=== PATIENT | female | born 1975 | race Caucasian/White ===

== ENCOUNTER 2019-11-23 11:16 | Outpatient (CLI) | payer SELFPAY ==
--- NOTE | 2019-11-23 11:24 | MM_ITS ---
WS: [id number] Bilateral screening digital mammogram, 11/23/2019 Clinical Data: SCREENING Comparison: 10/21/2018, 08/18/2017. Findings: The breast parenchymal pattern shows fibroglandular tissue No spiculated masses or clustered calcific ations are seen. There are no secondary signs of carcinoma. MM/[id number] Impression: 1. Negative bilateral mammogram unchanged. 2. Recommend annual screening mammograms. BIRADS: 1-Negative FOLLOW UP: 1 Year Follow-up The CAD brick paving checker was used.
== END 2019-11-23 11:17 | disposition home or self-care (01) ==
LOC: RADSHAW 11:23
PROVIDERS: PCP Family Medicine; Visit Provider Family Medicine
DX: Z12.31 Encounter for screening mammogram for malignant neoplasm of breast (principal)
CPT/HCPCS: 77067

== ENCOUNTER → 2020-01-11 11:48 | Outpatient (BNVA) | payer SELFPAY | PROVIDERS: PCP Family Medicine; Visit Provider Specialist | DX: G35 Multiple sclerosis (principal) | CPT/HCPCS: 99215 ==

== ENCOUNTER → 2020-02-21 09:10 | Outpatient (BNVA) | payer SELFPAY | PROVIDERS: PCP Family Medicine; Visit Provider Nurse Practitioner Women's Health | DX: Z01.419 Encounter for gynecological examination (general) (routine) without abnormal findings (principal) | CPT/HCPCS: 88175 ==

== ENCOUNTER 2020-12-21 11:18 | Outpatient (CLI) | payer SELFPAY ==
--- NOTE | 2020-12-21 11:24 | MM_ITS ---
WS: [id number] BILATERAL SCREENING DIGITAL MAMMOGRAM WITH CAD HISTORY: SCREENING COMPARISON: 11/23/2019 and 10/21/2018 Bilateral CC and MLO views submitted. Computer aided detection analyzed. Breast composition: There are scattered areas of fibroglandular density. No suspicious masses, microc alcifications or architectural distortion. Benign lymph node upper outer quadrant RIGHT breast is sta ble. MM/[id number] IMPRESSION: BI-RADS: 2-Benign FOLLOW UP: 1 Year Follow-up
== END 2020-12-21 11:19 | disposition home or self-care (01) ==
PROVIDERS: PCP Family Medicine; Visit Provider Family Medicine
DX: Z12.31 Encounter for screening mammogram for malignant neoplasm of breast (principal)
CPT/HCPCS: 77067

== ENCOUNTER → 2021-02-21 08:37 | Outpatient (BNVA) | payer SELFPAY | PROVIDERS: PCP Family Medicine; Visit Provider Nurse Practitioner Women's Health | DX: Z01.419 Encounter for gynecological examination (general) (routine) without abnormal findings (principal); N87.0 Mild cervical dysplasia | CPT/HCPCS: 87624 ==

== ENCOUNTER → 2021-03-12 16:13 | Outpatient (BNVA) | payer SELFPAY | PROVIDERS: PCP Family Medicine; Visit Provider Obstetrics & Gynecology | DX: N87.0 Mild cervical dysplasia (principal) | CPT/HCPCS: 88305 ==

== ENCOUNTER → 2021-04-11 11:35 | Outpatient (BNVA) | payer SELFPAY | PROVIDERS: PCP Family Medicine; Visit Provider Obstetrics & Gynecology | DX: N87.0 Mild cervical dysplasia (principal) | CPT/HCPCS: 88305; 88307 ==

== ENCOUNTER 2021-11-29 10:37 | Outpatient (CLI) | payer SELFPAY ==
--- NOTE | 2021-11-29 11:05 | MM_ITS ---
WS: [id number] BILATERAL SCREENING DIGITAL BREAST TOMOSYNTHESIS MAMMOGRAM WITH CAD HISTORY: SCREENING COMPARISON: 12/21/2020 and 11/23/2019 Bilateral CC and MLO views with tomosynthesis and synthetic mammography submitted. Computer aided det ection analyzed. Breast composition: There are scattered areas of fibroglandular density. No suspicious masses, microc alcifications or architectural distortion. Benign RIGHT axillary tail lymph node. MM/[id number] IMPRESSION: BI-RADS: 2-Benign FOLLOW UP: 1 Year Follow-up
== END 2021-11-29 10:38 | disposition home or self-care (01) ==
LOC: RAD 10:40
PROVIDERS: PCP Family Medicine; Visit Provider Nurse Practitioner Women's Health
DX: Z12.31 Encounter for screening mammogram for malignant neoplasm of breast (principal)
CPT/HCPCS: 77063; 77067

== ENCOUNTER → 2022-04-18 09:15 | Outpatient (BNVA) | payer SELFPAY | PROVIDERS: PCP Family Medicine; Visit Provider Nurse Practitioner Women's Health | DX: Z01.419 Encounter for gynecological examination (general) (routine) without abnormal findings (principal); N87.0 Mild cervical dysplasia | CPT/HCPCS: 87624 ==

== ENCOUNTER 2022-08-06 09:15 | Observation (INO) | payer SELFPAY ==
[2022-08-04 10:32] VITALS: BMI 30.2
[2022-08-04 11:04] LABS: Basophils # 0.1 10^3/uL (0.0-0.1); Basophils % 0.4 %; Eosinophils # 0.1 10^3/uL (0.0-0.8); Eosinophils % 0.5 %; Hematocrit 41.4 % (37.0-47.0); Hemoglobin 13.6 g/dL (11.5-15.3); Lymphocytes # 2.8 10^3/uL (0.8-4.8); Lymphocytes % 24.8 %; Mean Corpuscular HGB Conc 32.9 g/dL (30.0-36.0); Mean Corpuscular Volume 91.4 fl (81-99); Mean Platelet Volume 10.5 fL (7.4-10.4); Monocytes # 0.6 10^3/uL (0.2-0.9); Monocytes % 5.5 %; Neutrophils # 7.77 10^3/uL (1.8-7.7); Neutrophils % 68.4 %; Nucleated Red Blood Cells % 0 %; Platelet Count 282 10^3/cmm (130-400); Red Blood Count 4.53 10^6/uL (4.1-5.3); Red Cell Distribution Width 12.2 % (12.1-15.1); White Blood Count 11.4 10^3/uL (4.0-10.0)
[2022-08-04 11:16] LABS: Urine Appearance Clear (CLEAR); Urine Color Yellow (Yellow); pH Urine 6.5 (5-7)
[2022-08-04 11:17] LABS: Add Urine Microscopic? YES; Bilirubin Urine Neg (Negative); Blood Urine Trace (Negative); Glucose Urine UA Norm (Normal); Ketones Urine 1+ (Negative); Leukocyte Esterase Urine Negative (Negative); Nitrate Urine Negative (Negative); Protein Urine Neg (Negative); Urobilinogen Urine Norm (Negative)
[2022-08-04 11:18] LABS: Add Urine Culture? No; Bacteria Urine TRACE /hpf; Squamous Epithelial Cell Urine RARE /hpf (0-5); WBC Urine 0-4 /hpf (0-5)
[2022-08-04 11:22] LABS: Alanine Aminotransferase 9 U/L (0-33); Albumin Level 4.7 g/dL (3.5-5.2); Alkaline Phosphatase 62 U/L (35-105); Aspartate Amino Transferase 16 U/L (0-32); Blood Urea Nitrogen 10 mg/dL (6-20); Calcium 9.2 mg/dL (8.5-10.5); Carbon Dioxide 23 mmol/L (22-29); Chloride 104 mmol/L (98-107); Creatinine Clr Calc Pharmacy 96.1265; Globulin 2.7 g/dL (1.3-4.6); Glomerular Filtration Rate 90.5 mL/min (90-130); Glucose 88 mg/dL (65-115); Osmolality Calculated 290 mOsm/kg (285-295); Sodium 141 mmol/L (136-145); Total Bilirubin 0.4 mg/dL (0.15-1.2); Total Protein 7.4 g/dL (6.6-8.7)
--- NOTE | 2022-08-04 11:57 | P.ANESASSM_ITS ---
Pre-Anesthetic Assessment Height/Weight: Height 1.57 m Weight 74.843 kg Operation Date: 08/06/22 08:15 Proposed Procedures p Total vaginal hysterectomy 95579,R87.619,N93.9(Not Applicable) - Hernesto Fowler MD Familial anesthetic complications: PONV Was Beta Stacey taken within 24 hours: N/A Was Clonidine taken within 24 hours: N/A Social No alcohol and No tobacco Exam alert, oriented x 3, clear to auscultation bilaterally and regular rate & rhythm Airway Submandibular: within normal limits Cervical ROM: within normal limits Mallampati: Class II Dentition: full CV/HEM Hypertension Neuropsych MS Anesthetic Plan ASA status: 2 Anesthesia: General (TIVA) Medications/Allergies Home Medications Medication Instructions Recorded Confirmed Last Taken Type lisinopril 10 1 tab PO DAILY 01/11/20 08/04/22 Unknown History mg-hydrochlorothiazide 12.5 mg tablet cholecalciferol (vitamin D3) 50 50 mcg PO DAILY 02/21/20 08/04/22 Unknown History mcg (2,000 unit) tablet (Vitamin D3) Allergies Allergy/AdvReac Type Severity Reaction Status Date / Time No Known Allergies Allergy Verified 08/04/22 08:55 [facility] Anesthesia Medical History 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 States she cannot afford medication and all the doctors she sees want medication so she does not really follow with any doctor and manages her own symptoms. No pertinent past medical history Denies diabetes, asthma, seizures, DVT/PE PCP: Dr. Toro Surgical History History of dilation and curettage (~1998) For miscarriage History of LEEP (loop electrosurgical excision procedure) of cervix complicating X 2 04/11/2021 for persistent abnormal Pap smear for over 5 years 2011 for MK-3 History of tubal ligation (~2004) Performed via umbilicus Family History Grandmother Heart disease Maternal Stroke Maternal Hypertension maternal Mother Diabetes Hypertension Breast cancer diagnosed at age 62 Hypercholesteremia Father Diabetes Hypertension Brother Diabetes Hypertension Hypercholesteremia Grandfather Hypertension maternal Denies family history of Colon cancer Ovarian cancer Bleeding disorder Uterine cancer Thyroid disease Data Anesthesia 08/04/22 10:48 08/04/22 10:48 Short CBC 08/04/22 Range/Units 10:48 WBC 11.4 H (4.0-10.0) 10^3/uL Hgb 13.6 (11.5-15.3) g/dL Hct 41.4 (37.0-47.0) % MCV 91.4 (81-99) fl Plt Count 282 (130-400) 10^3/cmm Neut % (Auto) 68.4 % Neut # (Auto) 7.77 H (1.8-7.7) 10^3/uL BMP 08/04/22 10:48 Sodium 141 Potassium 4.0 Chloride 104 Carbon Dioxide 23 BUN 10 Creatinine 0.7 Glucose 88 Calcium 9.2 Liver Function 08/04/22 Range/Units 10:48 Total Bilirubin 0.4 (0.15-1.2) mg/dL AST 16 (0-32) U/L ALT 9 (0-33) U/L Alkaline Phosphatase 62 (35-105) U/L Albumin 4.7 (3.5-5.2) g/dL Urine 08/04/22 Range/Units 10:45 Urine Color Yellow (Yellow) Urine Appearance Clear (CLEAR) Urine pH 6.5 (5-7) Ur Specific [place] 1.010 (1.005-1.030) Urine Protein Neg (Negative) Urine Glucose (UA) Norm (Normal) Urine Ketones 1+ H (Negative) Urine Nitrate Negative (Negative) Urine Bilirubin Neg (Negative) Ur Leukocyte Esterase Negative (Negative) Urine RBC None (0-2) /hpf Urine WBC 0-4 H (0-5) /hpf Blood Bank 08/04/22 10:48 Blood Type O Positive Rho(D) Type Positive Antibody Screen Negative Cardiac Studies: No Data to Display
[2022-08-05 20:35] LABS: OR HCG Qualitative Urine Negative (Negative)
[2022-08-06] VITALS (20 sets, daily range): BP systolic 91–117; BP diastolic 53–77; PULSE 50–92; RESP 16–20; TEMP 36.1–37.3; O2SAT 95–100; BMI 30.2
[2022-08-06] MEDS: sodium chloride 0.9% 500 ML IV (06:19)
[2022-08-06] MEDS: scopolamine 1.5 Patch 1 PATCH TRANSDERMA (06:20)
--- NOTE | 2022-08-06 06:51 | W.PM.OPSUD ---
Surgery/Procedure H&P Update DATE OF PROCEDURE: August 06, 2022 DATE H&P PERFORMED: 08/04/22 H&P UPDATE INFORMATION: I have reviewed H&P completed within last 30 days, I have examined patient prior to procedure and No changes to prior documentation PREOP DIAGNOSIS: Abnormal uterine bleeding, abnormal cervix PLANNED PROCEDURE: Operation Date: 08/06/22 07:00 Proposed Procedures p Total vaginal hysterectomy 94695,R87.619,N93.9(Not Applicable) - Hernesto Fowler MD
[2022-08-06] MEDS: ceFOXitin 2,000 MG in sodium chloride 0.9% (plus) 50 ML 100 MG IV (07:04)
[2022-08-06] MEDS: lidocaine-epi 2% 20 mL INJ INJECTION (07:42)
--- NOTE | 2022-08-06 08:25 | PM.OP ---
Operative Report Date of procedure: August 06, 2022 Pre-op diagnosis: Preop Diagnosis Abnormal uterine bleeding, abnormal cervix Post-op diagnosis: Same as above Post-op findings: Normal so you Procedure done: Total vaginal hysterectomy Specimens removed/disposition: Uterus Surgeon: Hernesto Fowler MD Estimated blood loss (mL): 50 IV fluids (mL): 700 Urine output (mL): 200 Procedure: After informed consent and risks, benefits, indications and alternatives reviewed with the patient was taken to the operating room. The patient was placed in dorsal lithotomy position prepped, and draped in the usual sterile fashion. The pre-procedure timeout verifying the correct patient, procedure, site and side, could not requirements was performed and acknowledge by the OR team. A Harrison catheter was placed. A Bookwalter vaginal retractor was placed into the vagina in usual manner visualize the cervix. The patient was given methylene blue IV. The cervix was grasped with a single tooth tenaculum and circumferentially infiltrated with 2% lidocaine with epinephrine. Then cervix was circumferentially incised with bovie and the bladder was dissected off the pubovesical cervical fascia anteriorly with a sponge stick and Metzenbaum scissors. The anterior peritoneal reflection was identified and the anterior cul-de-sac was entered sharply with Metzenbaum scissors. The same procedure was performed posteriorly and a posterior colpotomy was made through the posterior cul-de-sac space without difficulty and the posterior blade of the Bookwalter vaginal retractor was advanced posteriorly into the cul-de-sac. At this time, the left and right uterosacral ligaments were isolated and ligated with 0 Vicryl. The Voyant device was placed over the uterosacral ligaments on either side and was then used in a serial fashion up through the cardinal ligaments bilaterally cross-clamped, cut, and sealed with the Voyant device. Finally, the uterine arteries were cross-clamped, cut, sealed and ligated with the Voyant device. Hemostasis was assured. The broad ligaments were then serially clamped, sealed and cut with the Voyant device on both sides. Excellent hemostasis was visualized. Both cornua were clamped, sealed and cut with the Voyant device. Then the pedicles were then suture ligated with excellent hemostasis. The uterus was excised and submitted for pathologic evaluation. No other abnormalities were noted in the pelvic cavity. Good hemostasis was assure on both sides. The peritoneum was then closed in a pursestring fashion with 0 Vicryl suture. The vaginal cuff angles were closed with pelxwd-vg-ipure #0 Vicryl suture on both sides and transfixed with the ipsilateral cardinal and uterosacral ligaments. The remainder of the vaginal cuff was closed with #0 Vicryl in a running locked fashion. At this time, instruments were removed from the vagina at hemostasis assured. Harrison catheter was noted yielding clear jakob urine. The patient was taken out of dorsal lithotomy position and awakened from the general anesthesia. The patient tolerated the procedure well and was taken to the PACU recovery room in a stable condition. Sponge, lap, needle and instruments counts were correct x3.
--- NOTE | 2022-08-06 09:33 | P.ANESUD_ITS ---
Pre-Anesthetic Update Pre-Anesthetic Assessment: Date of Surgery/Procedure: 08/06/22 Preop Mandi gnosis: Abnormal uterine bleeding, abnormal cervix Proposed Procedure: Operation Date: 08/06/22 07:00 Proposed Procedures p Total vaginal hysterectomy 28885,R87.619,N93.9(Not Applicable) - Hernesto Fowler MD Any changes to Pre-Anesthetic Assessment?: No Last Intake: Intake Last Liquid Date 08/05/22 Last Liquid Time 19:30 Last Solid Date 08/05/22 Last Solid Time 17:30 Labs Last 48hrs: Short CBC 08/04/22 Range/Units 10:48 WBC 11.4 H (4.0-10.0) 10^3/ uL Hgb 13.6 (11.5-15.3) g/dL Hct 41.4 (37.0-47.0) % MCV 91.4 (81-99) fl Plt Count 282 (130-400) 10^3/c mm Neut % (Auto) 68.4 % Neut # (Auto) 7.77 H (1.8-7.7) 10^3/u L BMP 08/04/22 10:48 Sodium 141 Potassium 4.0 Chloride 104 Carbon Dioxide 23 BUN 10 Creatinine 0.7 Glucose 88 Calcium 9.2 Liver Function 08/04/22 Range/Units 10:48 Total Bilirubin 0.4 (0.15-1.2) mg/dL AST 16 (0-32) U/L ALT 9 (0-33) U/L Alkaline Phosphata se 62 (35-105) U/L Albumin 4.7 (3.5-5.2) g/dL Urine 08/04/22 Range/Units 10:45 Urine Color Yellow (Yellow) Urine Appearance Clear (CLEAR) Urine pH 6.5 (5-7) Ur Specific [place]it y 1.010 (1.005-1.030) Urine Protein Neg (Negative) Urine Glucose (UA) Norm (Normal) Urine Ketones 1+ H (Negative) Urine Nitrate Negative (Negative) Urine Bilirubin Neg (Negative) Ur Leukocyte Valerie ase Negative (Negative) Urine RBC None (0-2) /hpf Urine WBC 0-4 H (0-5) /hpf Blood Bank 08/04/22 10:48 Blood Type O Positive Rho(D) Type Positive Antibody Screen Negative Vitals: Temperature 97.4 F L 08/06/22 09:12 Temperature Source Temporal Artery S can 08/06/22 09:12 Pulse Rate 74 08/06/22 09:12 Respiratory Rate 16 08/06/22 09:12 Blood Pressure 101/65 08/06/22 09:12 Blood Pressure Niru n 77 08/06/22 09:12 Pulse Oximetry 98 08/06/22 09:12 Oxygen Delivery Me thod 08/06/22 09:12 Oxygen Flow Rate 6 08/06/22 08:53 Exam: Pre-Anes Outpt Exam: alert, oriented x 3, clear to auscultation bilaterally and regular rate & rhythm Cardiac Studies: No Data to Display
[2022-08-06] MEDS: sodium chloride 0.9% 1,000 ML 30 ML IV (09:47)
[2022-08-06] MEDS: ketorolac 30 mg/mL INJ IVP ×2 (11:10→17:00)
--- NOTE | 2022-08-06 16:49 | ANE.PACU2 ---
Inpatient post-anesthesia follow up: Airway intact: Yes Vital signs: Temperature 97.9 F Pulse Rate 92 Respiratory Rate 18 Blood Pressure 96/64 Pulse Oximetry 98 Oxygen Delivery Me thod Room Air Oxygen Flow Rate 6 Fraction of Inspir ed Oxygen Hydration adequate: Yes Nausea and vomiting: No Pain level: 3 Mental status: Baseline
[2022-08-06] MEDS: docusate sodium 100 mg Capsule PO (17:00)
[2022-08-06] MEDS: HYDROcodone-acetaminophen 5-325 mg Tablet PO (21:15)
[2022-08-06] MEDS: simethicone 80 mg Chew PO (21:15)
[2022-08-07 05:03] VITALS: BP 92/87; PULSE 59; RESP 18; TEMP 36.8; O2SAT 94
[2022-08-07 05:18] LABS: Hematocrit 38.2 % (37.0-47.0); Hemoglobin 12.5 g/dL (11.5-15.3); Mean Corpuscular HGB Conc 32.7 g/dL (30.0-36.0); Mean Corpuscular Volume 91.6 fl (81-99); Mean Platelet Volume 10.6 fL (7.4-10.4); Platelet Count 281 10^3/cmm (130-400); Red Blood Count 4.17 10^6/uL (4.1-5.3); Red Cell Distribution Width 12.3 % (12.1-15.1)
[2022-08-07 05:26] LABS: White Blood Count 31.9 10^3/uL (4.0-10.0)
[2022-08-07 05:54] VITALS: BP 111/68; PULSE 75; RESP 18; TEMP 36.6; TEMP 36.7; O2SAT 96
--- NOTE | 2022-08-07 08:54 | PM.OBGYDC ---
Discharge Providers DOMESTIC CLEANER Date of Admission: 08/06/22 09:15 Date of Discharge: 08/07/22 Attending Provider at Admission: Hernesto Fowler MD Attending Provider at Discharge: Hernesto Fowler MD Primary DOMESTIC CLEANER: Hernesto Fowler MD Primary Care Provider: Lori Toro MD Reason for Visit Reason for Visit: R87.619, N93.9 Brief History: Mrs. Pennington is a 47-year-old female with a history of persistent chronic abnormal Pap smear and abnormal uterine bleeding. Hospital Course Hospital Course Mrs. Pennington is a 47-year-old female with a history of persistent chronic abnormal Pap smear and abnormal uterine bleeding. She was admitted for planned total vaginal hysterectomy which was performed without complications. Overnight observation was unremarkable. She is tolerating diet well. Ambulating without difficulty. Refers no pain and she has not requested any pain medication. She is afebrile and hemodynamically stable postoperative day 1. Patient counseled regarding elevated white count may be associated to her MS history. She was counseled regarding pelvic rest for 6 weeks (no sex, no tampons, no vaginal douches). Return to the emergency room if any fever, increased bleeding or pain. She was also advised regarding no heavy lifting greater than 10 pounds. She was advised to follow-up in the clinic tomorrow to check blood count. Physical Exam Narrative: GA: Alert and oriented ?3. HEENT: WNL. Heart: Regular rate and rhythm. Lungs: Clear to auscultation bilaterally. Abdomen: Bowel sounds present, nontender, minimal tenderness. DINING SERVICE SUPERVISOR: No bleeding. Extremities: No edema, no cyanosis, no calves pain. Urinary Catheter Management: Harrison: Cath Placed During This Visit: yes, but has since been removed by the nurse Reason for Continuing Indwelling Catheter: Required Immobilization for Trauma or Surgery or Anesthesia Urinary Catheter Date of Insertion: 08/06/22 Urinary Catheter Time of Insertion: 07:34 Date Urinary Catheter Removed: 08/06/22 Time Urinary Catheter Discontinued: 16:30 History History History 3 Term 2 0 Miscarriages/Ectopic 1 Living Children 2 Discharge Data Studies Completed and Pending Pending at discharge Category Date Time Status Pathology: Surgical [PTH] Routine Pth 08/06/22 08:08 Received Laboratory Results WBC 31.9 10^3/uL (4.0-10.0) H* 08/07/22 05:10 RBC 4.17 10^6/uL (4.1-5.3) 08/07/22 05:10 Hgb 12.5 g/dL (11.5-15.3) 08/07/22 05:10 Hct 38.2 % (37.0-47.0) 08/07/22 05:10 MCV 91.6 fl (81-99) 08/07/22 05:10 MCH 30.0 pg (28.0-34.0) 08/07/22 05:10 MCHC 32.7 g/dL (30.0-36.0) 08/07/22 05:10 RDW 12.3 % (12.1-15.1) 08/07/22 05:10 Plt Count 281 10^3/cmm (130-400) 08/07/22 05:10 MPV 10.6 fL (7.4-10.4) H 08/07/22 05:10 Neut % (Auto) 68.4 % 08/04/22 10:48 Lymph % (Auto) 24.8 % 08/04/22 10:48 [place] % (Auto) 5.5 % 08/04/22 10:48 Eos % (Auto) 0.5 % 08/04/22 10:48 Baso % (Auto) 0.4 % 08/04/22 10:48 Neut # (Auto) 7.77 10^3/uL (1.8-7.7) H 08/04/22 10:48 Lymph # (Auto) 2.8 10^3/uL (0.8-4.8) 08/04/22 10:48 [place] # (Auto) 0.6 10^3/uL (0.2-0.9) 08/04/22 10:48 Eos # (Auto) 0.1 10^3/uL (0.0-0.8) 08/04/22 10:48 Baso # (Auto) 0.1 10^3/uL (0.0-0.1) 08/04/22 10:48 Nucleated RBC % (auto) 0 % 08/04/22 10:48 Nucleated RBCs # 0.0 /100WBC 08/04/22 10:48 Sodium 141 mmol/L (136-145) 08/04/22 10:48 Potassium 4.0 mmol/L (3.5-5.1) 08/04/22 10:48 Chloride 104 mmol/L (98-107) 08/04/22 10:48 Carbon Dioxide 23 mmol/L (22-29) 08/04/22 10:48 Anion Gap 18.0 (5-19) 08/04/22 10:48 BUN 10 mg/dL (6-20) 08/04/22 10:48 Creatinine 0.7 mg/dL (0.5-0.9) 08/04/22 10:48 GFR Calculation 90.5 mL/min (90-130) 08/04/22 10:48 Glucose 88 mg/dL (65-115) 08/04/22 10:48 Calculated Osmolality 290 mOsm/kg (285-295) 08/04/22 10:48 Calcium 9.2 mg/dL (8.5-10.5) 08/04/22 10:48 Total Bilirubin 0.4 mg/dL (0.15-1.2) 08/04/22 10:48 AST 16 U/L (0-32) 08/04/22 10:48 ALT 9 U/L (0-33) 08/04/22 10:48 Alkaline Phosphatase 62 U/L (35-105) 08/04/22 10:48 Total Protein 7.4 g/dL (6.6-8.7) 08/04/22 10:48 Albumin 4.7 g/dL (3.5-5.2) 08/04/22 10:48 Globulin 2.7 g/dL (1.3-4.6) 08/04/22 10:48 Urine Color Yellow (Yellow) 08/04/22 10:45 Urine Appearance Clear (CLEAR) 08/04/22 10:45 Urine pH 6.5 (5-7) 08/04/22 10:45 Ur Specific [place] 1.010 (1.005-1.030) 08/04/22 10:45 Urine Protein Neg (Negative) 08/04/22 10:45 Urine Glucose (UA) Norm (Normal) 08/04/22 10:45 Urine Ketones 1+ (Negative) H 08/04/22 10:45 Urine Blood Trace (Negative) H 08/04/22 10:45 Urine Nitrate Negative (Negative) 08/04/22 10:45 Urine Bilirubin Neg (Negative) 08/04/22 10:45 Urine Urobilinogen Norm mg/dL (Negative) 08/04/22 10:45 Ur Leukocyte Esterase Negative (Negative) 08/04/22 10:45 Urine RBC None /hpf (0-2) 08/04/22 10:45 Urine WBC 0-4 /hpf (0-5) H 08/04/22 10:45 Ur Squamous Epith Cells Rare /hpf (0-5) 08/04/22 10:45 Amorphous Sediment Not Reportable 08/04/22 10:45 Urine Bacteria Trace /hpf (NONE) 08/04/22 10:45 Urine HCG, Qual Negative (Negative) 08/04/22 10:45 Blood Type O Positive 08/04/22 10:48 Rho(D) Type Positive 08/04/22 10:48 Antibody Screen Negative 08/04/22 10:48 Vitals Last Vital Signs Temp 98.0 F 08/07/22 05:54 Pulse 75 08/07/22 05:54 Resp 18 08/07/22 05:54 BP 111/68 08/07/22 05:54 Pulse Ox 96 08/07/22 05:54 O2 Del Method 08/07/22 05:54 O2 Flow Rate 6 08/06/22 08:53 Discharge Plan Discharge Patient Disposition: Home Condition: Stable Prescriptions: New hydrocodone-acetaminophen 5-325 mg tablet 1 tab PO Q4H PRN (Reason: pain) Qty: 10 0RF acetaminophen 325 mg capsule 325 mg PO Q4H PRN (Reason: fever or pain) Qty: 60 0RF ibuprofen 800 mg tablet 800 mg PO TID PRN (Reason: pain) Qty: 60 0RF Continued cholecalciferol (vitamin D3) [Vitamin D3] 50 mcg (2,000 unit) tablet 50 mcg PO DAILY lisinopril-hydrochlorothiazide 10-12.5 mg tablet 1 tab PO DAILY Discharge Orders: Discharge Order (Routine); Ordered 08/07/22 Ordered By: Hernesto Fowler Referrals: Hernesto Fowler MD [Physician] - 08/20/22 11:00 am (2 week post-op: 08/20/22 @11:00 6 week post-op: 09/19/22 @9:30) Discharge Diet: Usual diet Discharge Activity: Limit activity as instructed Patient Instructions: Vaginal Hysterectomy (DC), OB Discharge Report, OB Food/Drug Interaction Guide, Opioid Safety Activity Restrictions/Additional Instructions: 1. Please call [facility] on next working day to make your post-operative appointment in 2 weeks. 2. Please stay home until you come back to the clinic on first post-operative check up. 3. Please follow instructions on your medications CAREFULLY. 4. If you have abdominal incision, do not cover it unless dressing is necessary because of drainage. OK to shower, but avoid bath. Leave steri-strips until they fall off. If they are still on one week after surgery, you may remove them. 5. If you had vaginal surgery or vaginal repair, Dr. Fowler may instruct you to take SITZ bath. 6. Yellow, blood tinged odorous vaginal discharge is usually normal after hysterectomy or vaginal surgeries. 7. No sexual intercourse, tampons, or douches until you are completely released from the post-operative care. 8. Avoid constipation by eating right and maybe using some Metamucil or Milk of Magnesia. 9. All prescription refills are given during the working hours. Please do no wait till it runs out. Call the clinic at [phone] before your medication runs out. The clinic will get in touch with your doctor to prescribe medications if necessary. 10. Please remain within 40 mile radius from our hospital because emergencies do happen now and then during the post-operative period. 11. If you have stairs at home, take one step at a time slowly and minimize the number of trips. It helps to stay in one floor for the next few days. No lifting except what you can lift by one hand until you are released from the post-operative care. 12. Driving is discouraged until you are well healed. It may be 3-4 weeks before you feel strong enough to drive. You should be able to turn and look through the rear window without pain and you should be able to push the brake pedal very hard without pain before you drive. No fast rules, but SAFETY should be your primary concern. DO NOT drive if you are on sedating medications such as narcotics. 13. Call the clinic (during working hours) to make urgent appointment or go to the Emergency room, if any of the following occurs: i. Vaginal bleeding becomes heavy, more than a period. ii. Incision becomes red and sore, or drains pus. iii. Your temperature is over 100.4 or you have chill. iv. IV site becomes red and swollen (a little ``knot?? is usually OK) v. Persistent nausea and vomiting vi. Persistent constipation or diarrhea vii. Rash or allergic reaction to medications. Discharge Attestations DOMESTIC CLEANER Time Spent in Discharge Care*: greater than 30 min Coding Level of Care Code Acute Code for Chg Fwd
[2022-08-07] MEDS: ibuprofen 800 mg tablet PO (09:20)
[2022-08-07] MEDS: docusate sodium 100 mg Capsule PO (09:20)
[2022-08-07 09:40] VITALS: BP 109/68; PULSE 65; RESP 18; TEMP 36.6; O2SAT 100
[2022-08-07 09:41] VITALS: BP 109/68; PULSE 65; RESP 18; TEMP 36.6; O2SAT 100
== END 2022-08-07 09:32 | disposition home or self-care (01) ==
LOC: OBGYN 09:16
PROVIDERS: Admitting Provider Obstetrics & Gynecology; PCP Family Medicine; Visit Provider Obstetrics & Gynecology
PROC: (CPT 58260; principal; 2022-08-06 07:00)
DX: N93.9 Abnormal uterine and vaginal bleeding, unspecified (principal); I10 Essential (primary) hypertension
CPT/HCPCS: 58260; 36415; 80053; 81001; 81025; 84703; 85025; 85027; 86850; 86900; 88307; G0378; J0131; J0694; J1100; J1885; J2250; J2405; J2704; J3010; J3490; J7030; J7040; Q9968

== ENCOUNTER → 2022-08-08 10:20 | Outpatient (BNVA) | payer SELFPAY | PROVIDERS: PCP Family Medicine; Visit Provider Obstetrics & Gynecology | DX: Z87.42 Personal history of other diseases of the female genital tract (principal) | CPT/HCPCS: 85025 ==

== ENCOUNTER 2022-12-01 08:22 | Outpatient (CLI) | payer SELFPAY ==
--- NOTE | 2022-12-01 08:35 | MM_ITS ---
WS: [id number] BILATERAL SCREENING DIGITAL TOMOSYNTHESIS MAMMOGRAM WITH CAD HISTORY: SCREENING COMPARISON: 11/29/2021, 12/21/2020 Bilateral CC and MLO views with tomosynthesis and synthetic mammography submitted. Computer aided det ection analyzed. Breast composition: There are scattered areas of fibroglandular density. No suspicious masses, microc alcifications or architectural distortion. MM/[id number] IMPRESSION: BI-RADS: 1-Negative FOLLOW UP: 1 Year Follow-up
== END 2022-12-01 08:23 | disposition home or self-care (01) ==
PROVIDERS: PCP Family Medicine; Visit Provider Family Medicine
DX: Z12.31 Encounter for screening mammogram for malignant neoplasm of breast (principal)
CPT/HCPCS: 77063; 77067

== ENCOUNTER → 2023-06-19 10:52 | Outpatient (BNVA) | payer OTHER, SELFPAY | PROVIDERS: PCP Family Medicine; Visit Provider Family Medicine | DX: G35 Multiple sclerosis (principal); F41.9 Anxiety disorder, unspecified; I10 Essential (primary) hypertension; R53.83 Other fatigue | CPT/HCPCS: 80053; 80061; 82306; 82607; 82746; 83550; 84439; 84443; 85025 ==

== ENCOUNTER → 2023-08-05 13:50 | Outpatient (BNVA) | payer OTHER, SELFPAY | PROVIDERS: PCP Family Medicine; Visit Provider Nurse Practitioner Women's Health | DX: D06.9 Carcinoma in situ of cervix, unspecified (principal); Z01.419 Encounter for gynecological examination (general) (routine) without abnormal findings; F41.9 Anxiety disorder, unspecified; G35 Multiple sclerosis | CPT/HCPCS: 87624 ==

== ENCOUNTER 2023-12-03 09:30 | Outpatient (CLI) | payer OTHER, SELFPAY ==
--- NOTE | 2023-12-03 09:15 | MM_ITS ---
WS: [id number] BILATERAL SCREENING DIGITAL TOMOSYNTHESIS MAMMOGRAM WITH CAD HISTORY: SCREENING COMPARISON: 12/01/2022, 11/29/2021 Bilateral CC and MLO views with tomosynthesis and synthetic mammography submitted. Computer aided det ection analyzed. Breast composition: There are scattered areas of fibroglandular density. No suspicious masses, microc alcifications or architectural distortion. RIGHT axillary tail lymph node. MM/[id number] IMPRESSION: BI-RADS: 2-Benign FOLLOW UP: 1 Year Follow-up
== END 2023-12-03 09:31 | disposition home or self-care (01) ==
PROVIDERS: PCP Family Medicine; Visit Provider Family Medicine
DX: Z12.31 Encounter for screening mammogram for malignant neoplasm of breast (principal); R92.323 Mammographic fibroglandular density, bilateral breasts; N63.31 Unspecified lump in axillary tail of the right breast
CPT/HCPCS: 77063; 77067

== ENCOUNTER → 2023-12-08 10:38 | Outpatient (BNVA) | payer OTHER, SELFPAY | PROVIDERS: PCP Family Medicine; Visit Provider Psychiatry & Neurology Neurology | DX: G35 Multiple sclerosis (principal) | CPT/HCPCS: 36415; 83090; 83735; 83921; 84207; 84425; 84591 ==

== ENCOUNTER 2024-01-13 15:15 | Outpatient (CLI) | payer OTHER, SELFPAY ==
--- NOTE | 2024-01-13 15:15 | MR_ITS ---
WS: [id number] MRI HEAD WITH CONTRAST TECHNIQUE: Sagittal T1, T2 axial, T2 axial FLAIR, axial susceptibility weighted imaging, axial diffus ion weighted images, and coronal T2 images were obtained. Pre and post-T1 axial and post T1 coronal i mages. ADC and FSPGR images. CLINICAL INFORMATION: G35 - Multiple sclerosis COMPARISON: MRI 2019 FINDINGS: No evidence of restricted diffusion to suggest acute ischemia. Ventricular system and basal cisterns are patent. Again seen are mild patchy foci of T2 hyperintensity in the supratentorial white matter c ompatible with history of demyelinating disease. A few new lesions have developed compared to previou s mainly in the RIGHT frontal and posterior frontal lobes. Persistent small pericallosal lesions. Sim ilar-appearing lesions about the LEFT temporal and occipital horns. Stable lesion in the anterior RIG HT temporal lobe. No enhancing lesions to indicate active disease. Mild T1 hypointense lesion load. N o significant atrophy of the corpus callosum. No hemosiderin on the susceptibility weighted images. Normal vascular flow voids at the skull base. N o extra-axial fluid collections. Paranasal sinuses and mastoid air cells are well aerated. Normal opt ic chiasm and pituitary infundibulum. Temporal lobes and hippocampal formations are normal. Normal du ral venous sinuses. MR/MR head wo/w con [id number] IMPRESSION: 1. Mild patchy foci of T2 hyperintensity in the supratentorial white matter co mpatible with history of demyelinating disease. 2. Several new lesions have developed compared to previous with mild progressi on of disease burden. 3. No enhancing lesions to indicate active disease. 4. Mild T1 hypointense lesion load. 5. No significant parenchymal volume loss. 6. No other acute findings.
--- NOTE | 2024-01-13 16:00 | MR_ITS ---
WS: [id number] MR CERVICAL SPINE WO/W COMPARISON: None. HISTORY: G35 - Multiple sclerosis TECHNIQUE: Sagittal T1, T2 and T2 inversion recovery; axial T2, T2 gradient and fiesta. Post gadolini um imaging with fat saturation technique. FINDINGS: Straightening of the normal cervical lordosis. No high grade central canal narrowing. Cord signal is normal. No visualized demyelinating lesions within the cervical cord. No enhancing lesions to indicat e active disease. No significant cord atrophy. C2-3: Spinal canal and foramen are patent. C3-4: Mild facet arthropathy. Spinal canal and foramina are patent. C4-5: Mild facet arthropathy. Spinal canal and foramen are patent. C5-6: Mild LEFT and no significant RIGHT foraminal narrowing. Spinal canal is patent. C6-7: Minimal disc bulging. Spinal canal and foramen are patent. C7-T1: Mild disc osteophyte ridging. Prominent RIGHT epidural venous plexus. Spinal canal and foramen are patent. MR/MR cervical spine wo/w [id number] IMPRESSION: 1. No visualized demyelinating lesions within the cervical cord. 2. No enhancing lesions to indicate active disease. 3. No significant cord atrophy.
== END 2024-01-13 15:17 | disposition home or self-care (01) ==
PROVIDERS: PCP Family Medicine; Visit Provider Psychiatry & Neurology Neurology
DX: G35 Multiple sclerosis (principal); G93.9 Disorder of brain, unspecified; Q04.0 Congenital malformations of corpus callosum; D16.4 Benign neoplasm of bones of skull and face; F41.9 Anxiety disorder, unspecified; R53.83 Other fatigue
CPT/HCPCS: 70553; 72156; A9577

== ENCOUNTER 2024-01-14 08:16 | Outpatient (CLI) | payer OTHER, SELFPAY ==
--- NOTE | 2024-01-14 08:30 | FL_ITS ---
WS: [id number] LUMBAR PUNCTURE CLINICAL INFORMATION: G35 - Multiple sclerosis COMPARISON: None. TECHNIQUE: Informed consent: The procedure and its potential risk and complications were discussed with the francisca ent. Verbal and written consent was obtained. Timeout: A timeout was performed to confirm correct patient, procedure, and site. Patient was prepped and draped in the usual sterile fashion. Lidocaine 1% was used for local anesthes ia. Utilizing fluoroscopic guidance, a 3.5 inch 22-gauge spinal needle was advanced into the subarach noid space at L3-L4 via LEFT oblique sublaminar approach. Free flow of clear CSF was obtained. 12 cc of CSF was collected and sent the lab for further analysis. Opening pressure 18 cmH2O FLUOROSCOPIC TIME: 1min [id number] # of spot films: 1 FL/FL guided lumbarpunc dx* [id number] IMPRESSION: 1. Fluoroscopically guided lumbar puncture. No immediate complications 2. Opening pressure is normal at 18 cmH2O
[2024-01-14 10:16] LABS: Appearance CSF CLEAR (CLEAR); Color CSF COLORLESS (COLORLESS); PATH Referral YES
[2024-01-14 10:17] LABS: Mononuclear WBC CSF % 100 % (50-90); Polynuclear WBC CSF % 0 % (0-10); Red Blood Cell CSF 0 10^3/uL (0-0); White Blood Cell CSF 1 /uL (0-5)
[2024-01-14 10:31] LABS: Glucose CSF 58 mg/dL (40-70); Total Protein CSF 31 mg/dL (15-45)
[2024-01-19 10:39] LABS: Angiotensin Convert Enzy CSF 6 U/L (<=15)
[2024-01-19 13:44] LABS: Immunoglobulin G, CSF 2.2 mg/dL (0.8-7.7)
[2024-01-20 13:25] LABS: JC Virus DNA Ultra QN PCR NOT DETECTED Log IU/mL; JC Virus Quant CSF PCR NOT DETECTED
== END 2024-01-14 08:17 | disposition home or self-care (01) ==
LOC: RAD 08:17
PROVIDERS: PCP Family Medicine; Visit Provider Psychiatry & Neurology Neurology
DX: G35 Multiple sclerosis (principal)
CPT/HCPCS: 62328; 80503; 82040; 82042; 82164; 82784; 82945; 83916; 84157; 86592; 87015; 87070; 87075; 87116; 87205; 87206; 87327; 87799; 87801; 89050

== ENCOUNTER → 2024-08-11 09:47 | Outpatient (BNVA) | payer OTHER, SELFPAY | PROVIDERS: PCP Family Medicine; Visit Provider Nurse Practitioner Women's Health | DX: Z01.419 Encounter for gynecological examination (general) (routine) without abnormal findings (principal); D06.9 Carcinoma in situ of cervix, unspecified; F41.9 Anxiety disorder, unspecified; R53.83 Other fatigue; N95.1 Menopausal and female climacteric states; N91.5 Oligomenorrhea, unspecified; R53.82 Chronic fatigue, unspecified; N95.8 Other specified menopausal and perimenopausal disorders; R87.622 Low grade squamous intraepithelial lesion on cytologic smear of vagina (LGSIL) | CPT/HCPCS: 80053; 82306; 82607; 82670; 82728; 82746; 83001; 83036; 83525; 83540; 84403; 84439; 84443; 85025; 87624 ==

== ENCOUNTER 2024-12-05 07:53 | Outpatient (CLI) | payer OTHER, SELFPAY ==
--- NOTE | 2024-12-05 08:00 | MM_ITS ---
WS: [id number] SCREENING DIGITAL TOMOSYNTHESIS MAMMOGRAM WITH CAD HISTORY: Z12.31 - Encounter for screening mammogram for malignant ... COMPARISON: 12/03/2023, 12/01/2022 and 11/29/2021 Bilateral CC and MLO with tomosynthesis views submitted. Synthetic mammography reviewed. Computer aided detection analyzed. Breast composition: There are scattered areas of fibroglandular density. No suspicious masses, microcalcifications or architectural distortion. Benign intramammary lymph node upper outer quadrant RIGHT breast. MM/MM [facility] tomosynthesis [id number] IMPRESSION: BI-RADS: 2 - Benign. FOLLOW UP: 1 Year Follow-up
== END 2024-12-05 07:54 | disposition home or self-care (01) ==
LOC: RAD 07:54
PROVIDERS: PCP Family Medicine; Visit Provider Nurse Practitioner Women's Health
DX: Z12.31 Encounter for screening mammogram for malignant neoplasm of breast (principal); R53.83 Other fatigue; N95.1 Menopausal and female climacteric states
CPT/HCPCS: 77063; 77067

== ENCOUNTER 2024-12-06 12:11 | Outpatient (RCR) | payer OTHER, SELFPAY | END 2024-12-08 23:59 | disposition home or self-care (01) | LOC: SPT 12:11 | PROVIDERS: PCP Family Medicine; Visit Provider Family Medicine | DX: G35 Multiple sclerosis (principal) | CPT/HCPCS: 97162 ==

== ENCOUNTER 2024-12-09 05:00 | Outpatient (RCR) | payer OTHER, SELFPAY | END 2025-01-08 23:59 | disposition home or self-care (01) | LOC: SPT 05:00 | PROVIDERS: PCP Family Medicine; Visit Provider Family Medicine | DX: G35 Multiple sclerosis (principal) | CPT/HCPCS: 97110; 97112 ==

== ENCOUNTER → 2025-02-15 15:11 | Outpatient (BNVA) | payer OTHER, SELFPAY | PROVIDERS: PCP Family Medicine; Visit Provider Nurse Practitioner Women's Health | DX: R53.82 Chronic fatigue, unspecified (principal); N95.1 Menopausal and female climacteric states; Z13.1 Encounter for screening for diabetes mellitus | CPT/HCPCS: 80053; 82306; 82670; 82728; 83036; 83540; 84270; 84403; 84439; 84443; 84481; 85025 ==

== ENCOUNTER 2025-04-17 10:18 | Emergency (ER) | payer OTHER, SELFPAY ==
--- NOTE | 2025-04-17 10:19 | XR_ITS ---
WS: [id number] XR ankle LT min 3V* [id number] REASON FOR EXAM: pain FINDINGS: No fracture or focal bone lesion. The joint spaces of the ankle are intact and well preserved. XR/XR ankle LT min 3V* [id number] IMPRESSION: No significant bone or joint abnormality.
[2025-04-17 10:20] VITALS: BP 139/91; PULSE 85; TEMP 36.8; O2SAT 98; BMI 34.7
--- NOTE | 2025-04-17 11:20 | W.ED.EXTPRO ---
HPI - Extremity Problem General: Chief complaint: Extremity Injury, Lower Stated complaint: left ankle pain Time Seen by Provider: 04/17/25 10:55 Source: patient Mode of arrival: ambulatory Limitations: no limitations History of Present Illness: Patient is a 49-year-old female presents the emergency department after injuring her left ankle this morning. States that she fell on a few steps causing inversion injury to her ankle, has pain primarily to the dorsal lateral aspect radiating into the toes. States that she has not tried to bear weight secondary to the pain. No pain to the proximal fibula, has full range of motion and strength distally, no sensation changes. Vital stable, has not taken any medications prehospital. No previous injuries to the foot. MD Complaint: extremity pain Onset (ago): hour(s) Pain Consistency: constant Location: left and lower extremity (foot) Associated symptoms: Deny chest pain, fever(s) or rash Related Data Home Medications ?Medication ?Instructions ?Recorded ?Confirmed cholecalciferol (vitamin D3) 125 125 mcg PO DAILY 12/08/23 02/15/25 mcg (5,000 unit) capsule venlafaxine 37.5 mg 150 mg PO DAILY 08/11/24 02/15/25 capsule,extended release 24 hr Previous Rx's ?Medication ?Instructions ?Recorded lisinopril 10 1 tab PO DAILY #30 tabs 02/22/24 mg-hydrochlorothiazide 12.5 mg tablet estradiol 0.01% (0.1 mg/gram) 1 g vaginal .twice weekly #42.5 08/11/24 vaginal cream grams estradiol 0.0375 mg/24 hr 1 patch transdermal .twice weekly 02/15/25 semiweekly transdermal patch #24 ea (Dalia) progesterone micronized 100 mg 200 mg (2 x 100 mg) PO BEDTIME 02/15/25 capsule (Prometrium) #180 caps testosterone 1 % (50 mg/5 gram) 1 packet transdermal DAILY #150 03/07/25 transdermal gel packet (Vogelxo) grams Allergies Allergy/AdvReac Type Severity Reaction Status Date / Time No Known Allergies Allergy Verified 04/17/25 10:25 Review of Systems General: Reports: 10 or more systems reviewed and unremarkable except in HPI and below Const: Denies: fever(s) or chills Card: Denies: chest pain Resp: Denies: dyspnea or productive cough GI: Denies: abdominal pain, nausea, vomiting or diarrhea : Denies: flank pain Musc: Reports: extremity pain (left foot); Denies: neck pain, back pain, extremity swelling, joint pain, joint swelling, joint redness, joint warmth, limited range of motion or muscle weakness Skin/Breast: Denies: rash Neuro: Denies: headache(s), numbness in extremities or weakness in extremities PFSH ED PFSH: Medical History No pertinent past medical history neghx: dm, thyroid, dvt/pe PCP: 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 Multiple sclerosis (~01/2019) Diagnosed in 2018 and is managed with diet. States she cannot afford medication and all the doctors she sees want medication so she does not really follow with any doctor and manages her own symptoms. HTN (hypertension) Surgical History H/O: hysterectomy (~2022) TV for AUB and persistent MK 1; performed by [facility]; pathology benign; hx of KM 3 in 2011 History of dilation and curettage (~1998) For miscarriage History of LEEP (loop electrosurgical excision procedure) of cervix complicating X 2 04/11/2021 for persistent abnormal Pap smear for over 5 years 2011 for MK-3 History of tubal ligation (~2004) Performed via umbilicus Family History Grandmother Heart disease Maternal Stroke Maternal Hypertension maternal Mother Diabetes Hypertension Breast cancer diagnosed at age 62 Hypercholesteremia Father Diabetes Hypertension Brother Diabetes Hypertension Hypercholesteremia Grandfather Hypertension maternal Denies family history of Colon cancer Ovarian cancer Bleeding disorder Uterine cancer Thyroid disease Social History Smoking and tobacco/nicotine status: never used tobacco/nicotine Alcohol intake: never Substance/Drug Use: never Adopted: No Caregiver/support person: No Lives independently: No Physical Exam Const: COMMON NORMALS: no acute distress, patient oriented x3, no limitations, healthy appearing, alert and well nourished HENMT: COMMON NORMALS: normocephalic and atraumatic HEAD & SCALP: normocephalic and atraumatic Neck/C-Spine: COMMON NORMALS: full ROM, supple and no meningeal signs Extremity: COMMON NORMALS: full ROM and capillary refill normal NARRATIVE EXTREMITY EXAM: Swelling to left dorsal lateral foot, negative ankle tenderness to palpation. Negative tenderness to palpation to left proximal fibula. Full range of motion of the left foot, pulses palpable, sensations intact. Neuro: COMMON NORMALS: patient oriented x3, moves all extremities, no focal motor deficits and no sensory deficits noted SENSORIUM/ORIENTATION: Yes alert MENINGEAL SIGNS: Yes no meningeal signs Skin: COMMON NORMALS: no rashes or lesions noted GENERAL SKIN EXAM: no rashes or lesions noted Course Vital Signs: Vital signs: Vital Signs Temperature 98.2 F 04/17/25 10:20 Pulse Rate 85 04/17/25 10:20 Blood Pressure 139/91 04/17/25 10:20 Pulse Oximetry 98 04/17/25 10:20 Oxygen Delivery Me thod Room Air 04/17/25 10:20 MDM - Extremity (Nontraumatic) Medical Decision Making Patient presenting after a left foot, swelling and mild tenderness to the left dorsolateral foot but the x-ray does not reveal any acute fracture. Suspect a sprain of the foot, she will treat conservatively with RICE therapy, taking Motrin and Tylenol, and follow-up with primary care as needed. Lab Data Radiology Impressions Ankle X-Ray 04/17/25 10:19 IMPRESSION: No significant bone or joint abnormality. All radiology interpretation(s) finalized by discharge Discharge Plan Discharge Condition: Stable Prescriptions: No Action cholecalciferol (vitamin D3) 125 mcg (5,000 unit) capsule 125 mcg PO DAILY venlafaxine 37.5 mg capsule,extended release 24hr 150 mg PO DAILY estradiol 0.01 % (0.1 mg/gram) cream 1 g vaginal .twice weekly Qty: 42.5 3RF Rx Instructions: space out doses estradiol [Dalia] 0.0375 mg/24 hr patch semiweekly 1 patch transdermal .twice weekly Qty: 24 0RF progesterone micronized [Prometrium] 100 mg capsule 200 mg PO BEDTIME Qty: 180 0RF lisinopril-hydrochlorothiazide 10-12.5 mg tablet 1 tab PO DAILY Qty: 30 0RF testosterone [Vogelxo] 1 % (50 mg/5 gram) gel in packet 1 packet transdermal DAILY Qty: 150 0RF Rx Instructions: use as directed Referrals: Lori Toro MD [Primary Care Provider, Family Practice] Print Language: Mohawk Coding Level of Care Code 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
[2025-04-17 11:58] VITALS: BP 134/90; PULSE 81; O2SAT 99
== END 2025-04-17 11:59 | disposition home or self-care (01) ==
PROVIDERS: Emergency Provider Physician Assistant; PCP Family Medicine
DX: M25.572 Pain in left ankle and joints of left foot (principal); M25.472 Effusion, left ankle; I10 Essential (primary) hypertension
CPT/HCPCS: 73610; 99283; J9999